=== PATIENT | male | born 1945 | race Caucasian/White ===

== ENCOUNTER 2017-02-11 09:11 | Day surgery (SDC) | payer OTHER ==
[2017-02-10 14:02] LABS: BASOPHILS 0.1 %; BASOPHILS ABSOLUTE 0.02 10/3/uL (0.0-0.16); EOSINOPHILS 1.6 %; EOSINOPHILS ABSOLUTE 0.22 10/3/uL (0.0-0.53); IMMATURE GRANULOCYTES 0.3 %; IMMATURE GRANULOCYTES ABSOLUTE 0.04 10/3/uL (0.0-0.11); LYMPHOCYTES 8.1 %; LYMPHOCYTES ABSOLUTE 1.14 10/3/uL (0.67-4.30); MEAN PLATELET VOLUME 10.6 fL (9.2-13.0); MONOCYTES 6.5 %; MONOCYTES ABSOLUTE 0.92 10/3/uL (0.21-1.20); NEUTROPHILS 83.4 %; PLATELET COUNT 198 10/3/uL (150-400); RBC DISTRIBUTION WIDTH 15.2 % (12.0-16.0); RED CELL COUNT 5.34 10/6/uL (4.7-6.1)
[2017-02-10 14:04] LABS: HEMATOCRIT 46.3 % (40.0-51.0); MANUAL DIFF NO %; MEAN CORPUS HGB CONC 34.6 g/dL (32.0-36.0); MEAN CORPUSCULAR VOLUME 86.7 fL (80-100); WHITE BLOOD CELLS 14.1 10/3/uL (4.5-10.5)
[2017-02-10 14:18] LABS: A/G RATIO 0.9 (0.7-1.9); ALBUMIN 3.7 G/DL (3.5-5.0); ALKALINE PHOSPHATASE 59 U/L (45-117); BUN (BLOOD UREA NITROGEN) 15 MG/DL (6-23); CALCIUM, SERUM 9.5 MG/DL (8.5-10.4); CHLORIDE, SERUM 104 MMOL/L (96-112); CO2 (CARBON DIOXIDE) 30 MMOL/L (24-34); CREATININE 1.19 MG/DL (0.70-1.30); GFR AFRICAN AMERICAN 72 ML/MIN (>=60); GFR NON AFRICAN AMERICAN 62 ML/MIN (>=60); GLOBULIN 4.2 G/DL (2.5-4.1); GLUCOSE, SERUM 134 MG/DL (60-99); POTASSIUM, SERUM 4.4 MMOL/L (3.5-5.3); SGOT(AST) 18 U/L (5-40); SGPT(ALT) 21 U/L (5-65); SODIUM, SERUM 138 MMOL/L (135-148); TOTAL BILIRUBIN 0.6 MG/DL (0-1.2); TOTAL PROTEIN 7.9 G/DL (6.0-8.5)
--- NOTE | ~2017-02-11 | OP ---
Record Of Operation [facility] [address] [place]. [address] NAME: DIPAK JEFFERSON : 49 STATUS : REG [facility] [place] PAT#: [id number] AGE: 71 ADM/REG DATE : 02/11/17 MR#: [id number] REPORT SERV DATE: 02/11/17 DICTATED BY: MARY LOBO III DATE: 02/11/17 REPORT STATUS : Draft TRANSCRIBED BY: MODL DATE: 02/11/17 DATE OF PROCEDURE: 02/11/2017 PREOPERATIVE DIAGNOSIS: Severe perirectal abscess. POSTOPERATIVE DIAGNOSIS: Severe perirectal abscess, complicated perirectal abscess. PROCEDURE: Incision and drainage of complicated perirectal abscess. SURGEON: Mary Lobo M.D. ANESTHESIA: General with intubation. COMPLICATIONS: None. ESTIMATED BLOOD LOSS: Less than 5 mL. SPECIMENS: Cultures from wound. DRAINS: None. LAP AND SPONGE COUNT: Correct x3. BRIEF HISTORY: This 71-year-old male presented with a large perirectal abscess. 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 He is status post incision and drainage of perirectal abscess recently per Dr. Chen. It was felt that incision and drainage emergently of this current abscess was indicated. This procedure, the risks, benefits, and alternatives, including but not limited to the risk for bleeding, infection, pain, sphincter injury with incontinence of stool, postop anal fissure or fistula requiring further surgery, recurrent abscess formation, unforeseen complications including deep venous thrombosis, pulmonary embolus, myocardial infarction, stroke, pneumonia, and , were fully explained to the patient prior to surgery. The expected length of recovery was explained. The patient's questions were answered. He understood the risks and agreed to surgery as planned. PROCEDURE IN DETAIL: After being appropriately identified and after discussing risks of surgery with the patient again in the preoperative area, he was taken to the operating room and placed in the supine position on the operating room table. General anesthesia was administered and he was intubated without difficulty. His legs were placed in stirrups. They were carefully and appropriately padded and protected. The perineum and rectal areas were prepped and draped sterilely in the usual fashion. After an appropriate "time-out" per JCAHO standards, a rectal exam was performed under anesthesia. The patient was noted to have a large fluctuant abscess at the 12 o'clock position just anterior to the anal verge, midway between the anal verge and the scrotum. A circular incision was made directly over this fluctuant area. The incision was continued through subcutaneous tissue. A large amount of juan carlos pus was encountered. Extremely large abscess cavity was identified and Record Of Operation [facility] [address] [place]. [address] NAME: DIPAK JEFFERSON : 49 STATUS : [facility] [place] PAT#: [id number] AGE: 71 ADM/REG DATE : 02/11/17 MR#: [id number] REPORT SERV DATE: 02/11/17 DICTATED BY: MARY LOBO III DATE: 02/11/17 REPORT STATUS : Draft TRANSCRIBED BY: ADARSH DATE: 02/11/17 completely broken up. This cavity extended to the midline and to the left and right of the midline. There was no definite communication with the rectum. All loculations were broken up. Cultures were obtained. The large cavity was irrigated copiously with saline. Hemostasis was assured. The cavity was packed with iodoform gauze. Dressings were applied. Anesthesia was reversed. The patient was taken to the recovery room in stable condition. He tolerated the procedure well. His family was informed results of surgery. The patient will be discharged when stable and comfortable. His family has been advised that he should begin sitz baths tomorrow and remove the rectal packing tomorrow and changing the dressing daily and as needed. They have been advised that he should not drive for at least three to four days after surgery or while using narcotics, that he should resume his usual medications. He was given prescription for Duricef 500 mg p.o. b.i.d. x7 days and prescription for Percocet 7.5 one p.o. t.i.d. #12 as needed for pain, which he was advised not to use while driving. He was asked to return in one week for followup or sooner if any fever, chills, wound drainage, or other problems of concern prior to that time. JUDY/ADARSH Mary Lobo III, M.D. / [id number] CC: Kylah Velazco III, M.D.
--- NOTE | ~2017-02-11 | PREOPHP ---
PreOp History and Physical [facility] [id number] [place]. [address] NAME: DIPAK JEFFERSON : 49 STATUS : PRE [facility] [place] PAT#: [id number] AGE: 71 ADM/REG DATE : MR#: [id number] REPORT SERV DATE: 02/10/17 DICTATED BY: MARY LOBO III DATE: 02/10/17 REPORT STATUS : Draft TRANSCRIBED BY: MODL DATE: 02/10/17 HISTORY OF PRESENT ILLNESS: This is a 71-year-old male who comes to the operating room for incision and drainage of a perirectal abscess. 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 His last perirectal abscess was in November of this year and this was drained by Dr. Chen. The patient complains of a several-day history of severe perirectal pain. He presented to my office and was found to have a recurrent perirectal abscess in the posterior perineum. He comes now for incision and drainage of this abscess. PAST MEDICAL HISTORY: 1. 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 2. Hypertension. 3. Obesity. 4. Hyperlipidemia. 5. Coronary artery disease. 6. History of myocardial infarction. 7. Severe arthritis. 8. Obesity. PAST SURGICAL HISTORY: Includes I and D of multiple perirectal abscesses, coronary bypass graft, bilateral knee surgery, appendectomy, and right hand surgery. FAMILY HISTORY: Remarkable for lymphoma and cancer. SOCIAL HISTORY: The patient has a history of heavy tobacco abuse. He has no history of alcohol use. ALLERGIES: NONE. MEDICATIONS: Allopurinol, Actemra, Lasix, Ultram, Archana, Coreg, simvastatin, AcipHex, lisinopril, aspirin, Aldactone, levothyroxine, amlodipine, fenofibrate, and metformin. REVIEW OF SYSTEMS: The patient complains of joint pain and swelling. His fourteen-point review of systems is otherwise unremarkable. PHYSICAL EXAMINATION: GENERAL: This is a large obese male, in no acute distress. He is alert and oriented x3. HEENT: Unremarkable. Cranial nerves 2 through 12 are normal. LUNGS: Clear. CARDIAC: Normal. ABDOMEN: Soft, nontender. RECTAL: Reveals a tender fluctuant area posteriorly at the 6 o'clock position. This is consistent with recurrent abscess. It should be noted that the patient has multiple deformities of the joints of the upper and lower extremities. ASSESSMENT: PreOp History and Physical [address] [address] NAME: DIPAK JEFFERSON : 49 STATUS : PRE [facility] [place] PAT#: [id number] AGE: 71 ADM/REG DATE : MR#: [id number] REPORT SERV DATE: 02/10/17 DICTATED BY: MARY LOBO III DATE: 02/10/17 REPORT STATUS : Draft TRANSCRIBED BY: ADARSH DATE: 02/10/17 1. A 71-year-old male with recurrent perirectal abscess. 2. 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 3. Hypertension. 4. Hyperlipidemia. 5. Coronary artery disease. 6. Arthritis. 7. History of myocardial infarction. PLAN: The patient comes to the operating room now for incision and drainage of this large perirectal abscess. This procedure, the risks, benefits, and alternatives, including not limited to the risk for bleeding, infection, pain, swelling, scarring, deformity to the area, seroma formation, hematoma formation, sphincter injury with incontinence of stool, postop anal fissure or fistula requiring further surgery, and unforeseen complications including deep venous thrombosis, pulmonary embolus, myocardial infarction, stroke, pneumonia, and , have been explained to the patient prior to surgery. The expected length of recovery has been explained. His questions have been answered. The possibility of recurrent abscess formation in the future has been explained. Again, his questions have been answered and he understands and agrees to the surgery as planned. JUDY/ADARSH Mary Lobo III, M.D. / [id number]
[~2017-02-11 09:11] MED LIST: ACIPHEX PO; ACTEMRA80 MG/4 ML IJ; ACTONEL35 MG PO; AFRIN15 NAS; ALLEGRA180 PO; AMB5 PO; ARAVA 20 MG TAB20 MG PO; ARAVA20 PO; ASAB PO; AUG875 PO; COREG12 PO; COREG25 PO; DCN100 PO; DELTADOSE; DURICEF PO; FISH-EPA1000 MG PO; GLUCPH PO; HALF81 PO; IRON325 MG PO; KLOR-CON M2020 MEQ PO; L40 PO; L80 PO; LEVOTHYROXIN25 MCG PO; LEVOTHYROXIN88 MCG PO; LIPITOR10 PO; LOFIB160 PO; LORT7 PO; LORTAB 5 PO; MIRAPEX250 PO; NEXIUM40 PO; NORCO1 TAB PO; NORV5 PO; OS500+D PO; PERCOCET1 TA2 PO; PLAQ200B PO; PRIN10 PO; PRIN5 PO; PRINZIDE1 TA1 PO; RITUXAN IV; SEPTRA DS1 TAB PO; SIMPONI IM; SIMPONI PO; SLO-NIACIN500 MG PO; SPIRO25 PO; ULTRAM50 PO; VYTORIN 10/40 T1 TAB PO; Z300 PO; ZOCOR40 PO; [UNRECOGNIZED DRUG - OTHER] OP
[2017-06-11] MEDS ORDERED: AMOXIL500C PO (12:48)
[2017-06-11] MEDS ORDERED: NORCO1 TAB PO (12:50)
[2017-06-11] MEDS ORDERED: ARAVA20 PO (12:51)
[2017-06-11] MEDS ORDERED: P5 PO (12:52)
[2017-06-11] MEDS ORDERED: AFRIN15 NAS (12:53)
== END 2017-02-11 15:58 | disposition home or self-care (01) ==
LOC: SDC 09:11
PROVIDERS: Surgery
PROC: 0D9P0ZZ Drainage of Rectum, Open Approach (ICD-10-PCS; principal; 2017-02-11 11:30)
DX: K61.1 Rectal abscess (principal); I10 Essential (primary) hypertension; I25.10 Atherosclerotic heart disease of native coronary artery without angina pectoris; E78.5 Hyperlipidemia, unspecified; I25.2 Old myocardial infarction; E66.9 Obesity, unspecified; G47.33 Obstructive sleep apnea (adult) (pediatric); K21.9 Gastro-esophageal reflux disease without esophagitis; E03.9 Hypothyroidism, unspecified; M06.9 Rheumatoid arthritis, unspecified; E11.9 Type 2 diabetes mellitus without complications; Z68.35 Body mass index [BMI] 35.0-35.9, adult; Z95.5 Presence of coronary angioplasty implant and graft; Z90.49 Acquired absence of other specified parts of digestive tract; Z98.890 Other specified postprocedural states
CPT/HCPCS: 80053; 82962; 85025; 87015; 87070; 87075; 87077; 87102; 87116; 87186; 87205; 93005; J0330; J0690; J2250; J2370; J2405; J3010

== ENCOUNTER 2017-04-18 03:19 | Emergency (ER) | payer OTHER ==
[2017-04-18 03:39] LABS: BASOPHILS 0.2 %; BASOPHILS ABSOLUTE 0.02 10/3/uL (0.0-0.16); EOSINOPHILS 0.8 %; HEMATOCRIT 42.6 % (40.0-51.0); HEMOGLOBIN 14.1 g/dL (13.6-17.8); IMMATURE GRANULOCYTES 0.3 %; IMMATURE GRANULOCYTES ABSOLUTE 0.04 10/3/uL (0.0-0.11); LYMPHOCYTES 10.5 %; LYMPHOCYTES ABSOLUTE 1.31 10/3/uL (0.67-4.30); MEAN CORPUS HGB CONC 33.1 g/dL (32.0-36.0); MEAN CORPUSCULAR HEMOGLOB 28.1 pg (26.0-34.0); MEAN PLATELET VOLUME 11.3 fL (9.2-13.0); MONOCYTES 7.5 %; MONOCYTES ABSOLUTE 0.93 10/3/uL (0.21-1.20); NEUTROPHILS 80.7 %; NEUTROPHILS ABSOLUTE 10.05 10/3/uL (2.02-8.40); PLATELET COUNT 241 10/3/uL (150-400); RBC DISTRIBUTION WIDTH 14.6 % (12.0-16.0); RED CELL COUNT 5.01 10/6/uL (4.7-6.1); WHITE BLOOD CELLS 12.5 10/3/uL (4.5-10.5)
[2017-04-18 03:40] LABS: MANUAL DIFF NO %
[2017-04-18 03:56] LABS: BUN (BLOOD UREA NITROGEN) 20 MG/DL (6-23); CALCIUM, SERUM 9.2 MG/DL (8.5-10.4); CHLORIDE, SERUM 101 MMOL/L (96-112); CO2 (CARBON DIOXIDE) 29 MMOL/L (24-34); CREATININE 1.33 MG/DL (0.70-1.30); GFR AFRICAN AMERICAN 63 ML/MIN (>=60); GFR NON AFRICAN AMERICAN 54 ML/MIN (>=60); GLUCOSE, SERUM 185 MG/DL (60-99); POTASSIUM, SERUM 3.8 MMOL/L (3.5-5.3); SODIUM, SERUM 136 MMOL/L (135-148)
[2017-06-11] MEDS ORDERED: AMOXIL500C PO (12:48)
[2017-06-11] MEDS ORDERED: NORCO1 TAB PO (12:50)
[2017-06-11] MEDS ORDERED: ARAVA20 PO (12:51)
[2017-06-11] MEDS ORDERED: P5 PO (12:52)
[2017-06-11] MEDS ORDERED: AFRIN15 NAS (12:53)
== END 2017-04-18 05:31 | disposition home or self-care (01) ==
LOC: ER 03:19
PROVIDERS: Nurse Practitioner
DX: M54.6 Pain in thoracic spine (principal); M54.5 Low back pain; M19.042 Primary osteoarthritis, left hand; M19.041 Primary osteoarthritis, right hand; G89.29 Other chronic pain; E11.65 Type 2 diabetes mellitus with hyperglycemia; I10 Essential (primary) hypertension; E78.00 Pure hypercholesterolemia, unspecified; K21.9 Gastro-esophageal reflux disease without esophagitis; Z95.1 Presence of aortocoronary bypass graft; Z79.82 Long term (current) use of aspirin; Z79.899 Other long term (current) drug therapy
CPT/HCPCS: 80048; 85025; 96374; 96375; 99284; J1170; J2405